=== PATIENT | male | born 1995 | race Caucasian/White ===

== ENCOUNTER 2025-07-31 15:09 | Emergency (ER) | payer OTHER, SELFPAY ==
--- NOTE | 2025-07-31 15:17 | XR_ITS ---
FINAL REPORT CLINICAL HISTORY: Laceration over 1st MCP COMPARISON: None FINDINGS: AP, oblique, and lateral views of the left hand were obtained. There is no prior exam for comparison. There is no acute fracture of the left hand. No radiopaque foreign body is identified. The joint spaces are preserved. The soft tissues are normal. IMPRESSION: No acute osseous abnormality of the left hand. Reviewed, Interpreted and Dictated by Oumou Garcia MD Transcribed by Angelia Dubon Authenticated and [facility]
[2025-07-31 15:19] VITALS: BP 144/95; PULSE 67; RESP 18; TEMP 37; O2SAT 100; BMI 24.4
--- NOTE | 2025-07-31 15:20 | PC.NURSE ---
Pt has limited movement of the thumb. Sensation intact, strong pulse, brisk cap refill.
[2025-07-31 15:26] VITALS: BP 144/95; PULSE 71; O2SAT 100
--- NOTE | 2025-07-31 15:31 | HMH.EDGENADL ---
Discharge Plan Referrals Follow up/Referrals: Sarahi Garcia PA [Primary Care Provider, Medical] - See instructions Clinical Impressions Clinical Impression: Laceration of left thumb Stand Alone Forms Stand Alone Forms: Transfer Record - ED Instructions Patient Instructions: DI for Laceration Repair Print Language Print Language: [place] Discharge ED Provider: Edmar Doe General Adult HPI General Chief complaint: Wound/Laceration Stated complaint: AO 10-15 cut left hand at work Time Seen by Provider: 07/31/25 15:12 Mode of Arrival: Ambulatory Source of Information: Patient Description of Symptoms (Recalled from ER Triage Doc. by RN): Reports cutting his left thumb at work. History of Present Illness HPI narrative: This is a 30-year-old male patient, with no past medical history no daily medications, who is presenting to the emergency department today for evaluation of a laceration over his left hand. Patient states that he was at work and was using a razor blade to cut something and the blade slipped and cut the dorsal aspect of his hand over the thumb. He has had a loss of range of motion of the thumb specifically in abduction. He has had no sensory deficits. Related Data Allergies Allergy/AdvReac Type Severity Reaction Status Date / Time No Known Allergies Allergy Verified 07/31/25 15:23 [facility] Disclaimer: The information contained in this section may have been updated after the patient was seen, as this information can be updated by other users. Social History Smoking Status: Current every day smoker alcohol intake: former current occupational status: employed and unemployed Travel in the last 8 weeks?: None ROS Obtained: Yes Systems reviewed as appropriate & no additional complaints except as documented Physical Exam General General appearance: other (See MDM) Respiratory Respiratory exam: Present other (See MDM) Cardiovascular Cardiovascular exam: Present other (See MDM) Neurological Exam Neurological exam: Present other (See MDM) Medical Decision Making Medical Records Medical records reviewed: Yes I reviewed the patient's medical records. Screening: Per USPSTF and CDC recommendations, given the prevalence of disease in our region, it is our hospital?s policy to screen for HIV and viral Hepatitis for all patients aged 18 and over and those with ongoing risk factors. Aidan Inquiry Pt receiving controlled substance: No Aidan was queried for this patient: No Vital Signs: 07/31/25 15:19 Temperature 98.6 F Temperature Source Oral Pulse Rate [Radial] 67 Respiratory Rate 18 Blood Pressure [Right Arm] 144/95 H Blood Pressure Mean [Right Arm] 111 Blood Pressure Source [Right Arm] Automatic Cuff Blood Pressure Position [Right Arm] Sitting 02 Sat by Pulse Oximetry 100 Oxygen Delivery Method Room Air Orders (Tests/Meds): ED MEDICATIONS Generic Name Dose Route Start Last Admin Trade Name Freq PRN Reason Stop Dose Admin Cefazolin Sodium 2 gm/ Sodium 100 mls @ 200 mls/hr 07/31/25 16:00 07/31/25 16:16 Chloride IV 07/31/25 16:29 Infused ONCE ONE Infusion Oxycodone HCl 5 mg 07/31/25 16:18 Oxycodone 5mg Immediate Release Tablet PO 07/31/25 16:19 ONCE ONE Discontinued Medications Generic Name Dose Route Start Last Admin Trade Name Freq PRN Reason Stop Dose Admin Cefazolin Sodium 2 gm 07/31/25 15:27 07/31/25 15:41 Cefazolin 1gm Vial IM 07/31/25 15:28 Not Given ONCE ONE Tetanus/Reduced Diphtheria/Acell Pertussis 0.5 ml 07/31/25 16:00 07/31/25 15:51 Tet/Diphth/Pert-Adult 0.5ml Syringe IM 07/31/25 16:01 0.5 ml .ONCE ONE Administration ORDERS Category Date Time Status Hand XR left minimum 3 views [XR hand LT min 3V] Stat Exams 07/31/25 15:17 Taken Drug Screen,Urine Stat Lab 07/31/25 15:33 Ordered Medical Decision Narrative: In summary this is a 30-year-old male patient who is presenting to the emergency department today for evaluation of a laceration over the dorsal aspect of his left proximal thumb. Patient states that he was using a razor blade at work and the blade slipped and lacerated the thumb. Wound was hemostatic on arrival. The patient does not have any comorbidities that complicate his medical management or care. On initial evaluation of the patient they were resting comfortably in no acute distress and nontoxic in appearance. They are hemodynamically stable, saturating well room air, and are neurologically intact. On physical examination of the left upper extremity there is an approximate 2-1/2 cm laceration over the dorsal aspect of the thumb along the MCP joint. Upon full inspection of this wound you can see the rounded surface of the proximal phalanx where it meets the joint line. This is very suspicious for traumatic arthrotomy of the joint. The patient has limited range of motion with abduction of the thumb which could indicate underlying tendinous involvement. Wound is currently hemostatic. Differential diagnosis includes traumatic arthrotomy, retained foreign body, bony avulsion, tendinous injury, among others. Workup is initiated with x-rays of the left hand. We have also treated the patient with 2 g of Ancef, Tdap vaccination, and 5 mg of oxycodone for pain. X-rays were personally interpreted by me and demonstrate no evidence of retained foreign body or fracture. Given my suspicion for potential traumatic arthrotomy I did speak to our orthopedist on-call and he is recommended that we transfer for higher level of care for evaluation by an orthopedic hand surgeon. Therefore I had an interactive discussion with Dr. Byers at the [facility] transfer center and they graciously agreed to accept the patient for transfer to their facility for higher level of care. Patient request to be transferred by privately owned vehicle and I do feel this is appropriate given that he is hemodynamically stable and hemostatic at this time. Patient left the emergency department to transfer to via POV. Critical Care Critical Care Time Critical Care Time: No
--- NOTE | 2025-07-31 15:32 | PC.NURSE ---
Pt ambulatory to bathroom to provide urine sample
--- OUTSIDE RECORDS SUMMARY | 2025-07-31 15:32 | XMS_ITS | Clinical Summary ---
Author Organization [facility] Address [address] [place], [place] [id number] Phone [email or web address] Care Team Providers Care Qa Tester Name Role Phone Unavailable Primary Care Provider Unavailabl e Allergies No known active allergies Medications No known medications Active Problems No known active problems Social History Tobacco Use Types Packs/Day Years Used Date Smoking Tobacco: Never Assessed Stress Answer Date Recorded Stress in your Life Not on file 08/23/2024 Dealing with Stress 3 08/23/2024 Sex and Gender Information Value Date Recorded Sex Assigned at Not on file Legal Sex Male 6:33 AM [employer]PUT[employer] Gender Identity Not on file Sexual Orientation Not on file Last Filed Vital Signs Vital Sign Reading Time Taken Comments Blood Pressure 128/85 09/02/2023 9:40 AM EST Pulse 74 09/02/2023 9:40 AM EST Temperature 36.8 C (98.3 F) 09/02/2023 9:40 AM EST Respiratory Rate - - Oxygen Saturation 97% 09/02/2023 9:40 AM EST Inhaled Oxygen Concentration - - Weight 76.7 kg (169 lb 3.2 oz) 09/02/2023 9:40 A M EST Height 179.1 cm (5' 10.5 ) 09/02/2023 9:40 AM ES T Body Mass Index 23.93 09/02/2023 9:40 AM EST Plan of Treatment Health Maintenance Due Date Last Done Comments Dental Cleaning/Exam 1995 HIV Screening 1995 Hepatitis C Screening 1995 Polio Immunization (3 of 3 - 4-dose series) 10/29/1999 04/28/1999, 04/27/1996 HPV Immunization (1 - Male 3-dose series) 2010 Hep B Infection Screening - Triple Screen 2013 Hepatitis B Immunization (1 of 3 - 19+ 3-dose series) 2014 Tetanus Diphtheria and Pertussis Immunization (4 - Td or Tdap) 05/22/2017 05/22/2007, 04/28/1999, 08/29/1996 Annual Preventive Exam 09/02/2024 09/02/2023 Covid-19 Immunization ( season) 2025 Influenza Immunization (#1) 2025 HIB Immunization Completed 08/29/1996 Varicella Immunization Aged Out 08/29/1996 No lo nger eligible based on patient's age to complete this topic Hepatitis A Immunization Aged Out 09/04/2018 No longer eligible based on patient's age to complete this topic Pneumococcal Immunization Aged Out No longer eligible based on patient's age to complete this topic
--- NOTE | 2025-07-31 15:33 | PC.WOUNDNOTE ---
Spoke with HR at [employer]. States they do require a drug screen.
--- OUTSIDE RECORDS SUMMARY | 2025-07-31 15:33 | XMS_ITS | Data Portability ---
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 Plan of Treatment Reminders Order Date Submit Date Provider Last Modified By Organization Details Last Modified Time Details Appointments Establish ed Visit 15 min 2025 04:00P M Sarahi Quiñones PA-C Not available Not available Not available Lab CBC w/ auto diff 2024 025 [facility], [address] [place] [address], [id number], 07/30/2025 13:11:38 magnesium , serum or plasma 2024 025 [facility], [address] [place] [address], [id number], 07/30/2025 13:11:39 TSH + free T4, serum 2024 025 [facility], [address] [place] [address], [id number], 07/30/2025 13:11:37 TSH + free T4, serum 2024 025 [facility], [address] [place] [address], 07[address], 03/15/2025 19:09:28 thyropero xidase Ab, serum 2024 025 [facility], [address] [place] [address], [id number], 03/15/2025 19:09:29 T3, free, serum or plasma 2024 025 [facility], [address] [place] [address], [id number], 03/15/2025 19:09:31 CMP, serum or plasma 2024 025 [facility], [address] [place] [address], 18[address], 02/13/2025 13:18:54 CBC w/ auto diff 2024 025 [facility], [address] [place] [address], [address], 02/13/2025 13:18:53 TSH + free T4, serum 2024 025 [facility], [address] [place] [address], [address], 02/13/2025 13:18:53 magnesium , serum or plasma 2024 025 [facility], [address] [place] [address], 09686, 02/13/2025 13:18:58 HbA1c (hemoglob in A1c), blood 2024 025 [facility], [address] [place] [address], [id number], 02/13/2025 13:18:56 cobalamin and folate panel, serum 2024 025 [facility], [address] [place] [address], 88[address], 02/13/2025 13:18:56 vitamin D, 25-hydrox y, total, serum 2024 025 [facility], [address] [place] [address], 9[address], 02/13/2025 13:18:57 lipid panel, serum 2024 025 [facility], [address] [place] [address], 45[address], 02/13/2025 13:18:55 CMP, serum or plasma 2024 025 [facility], [address] [place] [address], 98135, 01/21/2025 16:13:25 CBC w/ auto diff 2024 025 [place] [address] [facility], [address] [place] [address], [id number], 01/24/2025 07:47:23 TSH + free T4, serum 2024 025 [facility], [address] [place] [address], [id number], 01/21/2025 16:13:24 magnesium , serum or plasma 2024 025 [facility], [address] [place] [address], [id number], 01/21/2025 16:13:29 HbA1c (hemoglob in A1c), blood [address], [address] [place] [address], 829[address], 01/24/2025 07:47:23 cobalamin and folate panel, serum 2024 025 [facility], [address] [place] [address], 18647, 01/21/2025 16:13:27 vitamin D, 25-hydrox y, total, serum 2024 025 [facility], [address] [place] [address], 02[address], 01/21/2025 16:13:28 lipid panel, serum 2024 025 [facility], [address] [place] [address], 827[address], 01/21/2025 16:13:26 Referral cardiolog ist referral 2024 025 MATT Burgess MD, [address], [place] [address], [place], [address], 07/29/2025 11:40:28 cardiolog ist referral - Sc ansley per patient 2024 [email or web address], [address], [facility], [place], [address], 02/14/2025 07:11:42 Procedures None recorded. Surgeries None recorded. Imaging electroca rdiogram [address], [address] [place] [address], [phone], 07/29/2025 10:23:19 US, thyroid [email or web address] - Centralized Scheduling, [address] [facility] , [place], [address], 03/28/2025 06:54:50 electroca rdiogram [address], [address] [place] [address], [phone], 01/17/2025 14:19:21 Medication Orders citalopra m 20 mg tablet 2024 025 [employer], [address], [place], [id number], 07/29/2025 09:47:43 Patient TargetsNo targets recorded. Patient Instructions Encounter Date Encounter Id Patient Instructions Last Modified By Organization Details Last Modified Time 01/17/2025 [id number] Plan: 1. EKG obtained today which showed normal sinus rhythm no ST segment elevation or depression noted with heart rate of 71 beats per minute. 2. Labs drawn today for evaluation. 3. Based on patients symptoms recommend cardiology referral for evaluation. 4. Follow-up in 3 weeks for recheck. Patient was counseled to return to the clinic sooner if needed. [email or web address] Not available 01/17/2025 13:50:01 02/12/2025 [id number] smoking and tobacco use cessation counseling* [email or web address] Not available 02/19/2025 07:09:56 Plan: 1. Labs drawn today for evaluation. 2. Advised patient he needs to be on Celexa for a full 4 weeks before going to see if medication dosing needs increased. 3. Counseled patient on smoking cessation patient is going to work on cutting back on his vaping. Patient was counseled for approximately 3 minutes. 4. Will follow up with him in 4 weeks. Labs redrawn today. Patient counseled to return to the clinic sooner if needed. [email or web address] Not available 02/12/2025 09:10:44 03/14/2025 [id number] 1. TSH was decreased from last visit, T4 was normal. Repeated thyroid lab work today. Ordered US for enlarged thyroid. 2. Will increase citalopram to 20 mg 3. He had an elevated LDL. Counseled patient on healthy diet. 4. Vitamin D was slightly below normal. Recommended a multivitamin Patient will return in 3 weeks for test results. Patient will return to clinic sooner if needed. LAWRENCE Booker I agree with the above Note completed by Ktoa BRAVO. will follow-up with patient 3 weeks sooner if needed. [email or web address] Not available 03/14/2025 14:29:37 05/09/2025 [id number] Plan: 1. Reviewe d blood work with him which came back normal on the repeat lab draw. 2. Reviewed thyroid ultrasound which showed unremarkable thyroid ultrasound with no nodules present. 3. Send his symptoms have all resolved with his job change and all his testing has been negative recommend follow-up on thyroid in 6 months. Patient is agreeable. He will make a sooner appointment if any new symptoms should arise otherwise will see him in 6 months sooner if needed. [email or web address] Not available 05/10/2025 08:13:41 07/29/2025 [id number] Plan: 1. EKG obtained today which showed normal sinus rhythm no ST segment elevation or depression with ventricular rate of 70 beats per minute. 2. Referral to Cardiology started today. 3. Labs drawn today for evaluation. 4. Will follow-up with him in October as scheduled. Patient was advised to return to the clinic sooner if needed. 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 Testi ng could not be compl eted due to a speci men ident ifica tion probl em. Patie nt name or ident ifica tion on speci men does not match name or ident ifica tion on requi sitio n. CONTA CTED SMITA [employer] OPERATOR ON Not Available [facility] ([facility]) [address] [place], [address], 01/21/2025 16:13:24 01/18/20 25 01/21/2025 TSH+F REE T4 T4,free(dire ct) TNP Test not perfo rmed Not Available [facility] ([facility]) [address] [place], [address], 01/21/2025 16:13:24 01/18/20 25 01/21/2025 COMP. METAB OLIC PANEL (14) glucose COMMEN T mg/dL Test not perfo rmed. Testi ng could not be compl eted due to a speci men ident ifica tion probl em. Patie nt name or ident ifica tion on speci men does not match name or ident ifica tion on requi sitio n. CONTA CTED [employer]ITA [employer] OPERATOR ON Not Available [facility] ([facility]) [address] [place], [address], 01/21/2025 16:13:25 01/18/20 25 01/21/2025 COMP. METAB OLIC PANEL (14) BUN TNP Test not perfo rmed Not Available [facility] ([facility]) [address] [facility], [place], [address], 01/21/2025 16:13:25 01/18/20 25 01/21/2025 COMP. METAB OLIC PANEL (14) creatinine TNP Test not perfo rmed Not Available [facility] ([facility]) [address] [facility], [place], [address], 01/21/2025 16:13:25 01/18/20 25 01/21/2025 COMP. METAB OLIC PANEL (14) eGFR MANGLE OPERATOR GARMENTS Not Available [facility] ([facility]) [address] [place], [address], 01/21/2025 16:13:25 01/18/20 25 01/21/2025 COMP. METAB OLIC PANEL (14) BUN/creatini ne ratio MANGLE OPERATOR GARMENTS Not Available [facility] ([facility]) [address] [place], [address], 01/21/2025 16:13:25 01/18/20 25 01/21/2025 COMP. METAB OLIC PANEL (14) sodium TNP Test not perfo rmed Not Available [facility] ([facility]) [address] [place], [address], 01/21/2025 16:13:25 01/18/20 25 01/21/2025 COMP. METAB OLIC PANEL (14) potassium TNP Test not perfo rmed Not Available [facility] ([facility]) [address] [place], [address], 01/21/2025 16:13:25 01/18/20 25 01/21/2025 COMP. METAB OLIC PANEL (14) chloride TNP Test not perfo rmed Not Available [facility] ([facility]) [address], [place], [address], 01/21/2025 16:13:25 01/18/20 25 01/21/2025 COMP. METAB OLIC PANEL (14) carbon dioxide, total TNP Test not perfo rmed Not Available [facility] ([facility]) [address], [place], [address], 01/21/2025 16:13:25 01/18/20 25 01/21/2025 COMP. METAB OLIC PANEL (14) calcium TNP Test not perfo rmed Not Available [facility] ([facility]) [address], [place], [address], 01/21/2025 16:13:25 01/18/20 25 01/21/2025 COMP. METAB OLIC PANEL (14) protein, total TNP Test not perfo rmed Not Available [facility] ([facility]) [address], [place], [address], 01/21/2025 16:13:25 01/18/20 25 01/21/2025 COMP. METAB OLIC PANEL (14) albumin TNP Test not perfo rmed Not Available [facility] ([facility]) [address] [facility], [place], [address], 01/21/2025 16:13:25 01/18/20 25 01/21/2025 COMP. METAB OLIC PANEL (14) globulin, total MANGLE OPERATOR GARMENTS Not Available [facility] ([facility]) [address] [facility], [place], [address], 01/21/2025 16:13:25 01/18/20 25 01/21/2025 COMP. METAB OLIC PANEL (14) A/G ratio MANGLE OPERATOR GARMENTS Not Available [facility] ([facility]) [address], [place], [address], 01/21/2025 16:13:25 01/18/20 25 01/21/2025 COMP. METAB OLIC PANEL (14) bilirubin, total TNP Test not perfo rmed Not Available [facility] ([facility]) [address] [place], [address], 01/21/2025 16:13:25 01/18/20 25 01/21/2025 COMP. METAB OLIC PANEL (14) alkaline phosphatase TNP Test not perfo rmed Not Available [facility] ([facility]) [address] [place], [address], 01/21/2025 16:13:25 01/18/20 25 01/21/2025 COMP. METAB OLIC PANEL (14) AST (SGOT) TNP Test not perfo rmed Not Available [facility] ([facility]) [address] [place], [address], 01/21/2025 16:13:25 01/18/20 25 01/21/2025 COMP. METAB OLIC PANEL (14) ALT (SGPT) TNP Test not perfo rmed Not Available [facility] ([facility]) [address] [place], [address], 01/21/2025 16:13:25 01/18/20 25 01/21/2025 LIPID PANEL cholesterol, total COMMEN T mg/dL Test not perfo rmed. Testi ng could not be compl eted due to a speci men ident ifica tion probl em. Patie nt name or ident ifica tion on speci men does not match name or ident ifica tion on requi sitio n. CONTA CTED SMITA [employer] OPERATOR ON 5 Not Available [facility] ([facility]) [address] [place], [address], 01/21/2025 16:13:26 01/18/20 25 01/21/2025 LIPID PANEL triglyceride s TNP Test not perfo rmed Not Available [facility] ([facility]) [address] [facility], [place], [address], 01/21/2025 16:13:26 01/18/20 25 01/21/2025 LIPID PANEL HDL cholesterol TNP Test not perfo rmed Not Available [facility] ([facility]) [address] [facility], [place], [address], 01/21/2025 16:13:26 01/18/20 25 01/21/2025 LIPID PANEL VLDL cholesterol rahel COMMEN T mg/dL Unabl e to calcu late resul t since non-n umeri c resul t obtai trever for compo nent test. Not Available [facility] ([facility]) [address] [facility], [place], [address], 01/21/2025 16:13:26 01/18/20 25 01/21/2025 LIPID PANEL LDL chol calc ([facility]) MANGLE OPERATOR GARMENTS Not Available [facility]) [address] [facility], [place], [address], 01/21/2025 16:13:26 01/18/20 25 01/21/2025 LIPID PANEL LDL calc comment: MANGLE OPERATOR GARMENTS Not Available [facility]) [address] [facility], [place], [address], 01/21/2025 16:13:26 01/18/20 25 01/21/2025 CARDI OVASC ULAR REPOR T interpretati on Not applic able A Litho link CDS inter preti ve repor t has not been gener ated since order ed tests are not curre ntly relev ant to the progr am. Not Available [facility] ([facility]) [address] [facility], [place], [address], 01/21/2025 16:13:27 01/18/20 25 01/21/2025 CARDI OVASC ULAR REPOR T pdf Not applic able Not Available [facility] ([facility]) [address] [facility], [place], [address], 01/21/2025 16:13:27 01/18/20 25 01/21/2025 VITAM IN B12 AND FOLAT E vitamin B12 COMMEN T pg/mL Test not perfo rmed. Testi ng could not be compl eted due to a speci men ident ifica tion probl em. Patie nt name or ident ifica tion on speci men does not match name or ident ifica tion on requi sitio n. CONTA CTED SMITA [employer] OPERATOR ON 5 Not Available [facility] ([facility]) [address] [place], [address], 01/21/2025 16:13:27 01/18/20 25 01/21/2025 VITAM IN B12 AND FOLAT E folate (folic acid), serum TNP Test not perfo rmed Not Available [facility] ([facility]) [address] [place], [address], 01/21/2025 16:13:27 01/18/20 25 01/21/2025 VITAM IN D, 25-HY DROXY vitamin D, 25-hydroxy COMMEN T NG/mL Test not perfo rmed. Testi ng could not be compl eted due to a speci men ident ifica tion probl em. Patie nt name or ident ifica tion on speci men does not match name or ident ifica tion on requi sitio n. CONTA CTED SMITA [employer] D[employer]ING [employer]ANT OPERATOR ON 5 Vitam in D defic iency has been defin ed by the Insti tute of Medic ine and an Endoc rine Socie ty pract ice guide line as a level of serum 25-OH vitam in D less than 20 ng/mL (1,2) . The Endoc rine Socie ty went on to [facility] er defin e vitam in D insuf ficie ncy as a level betwe en 21 and 29 ng/mL (2). 1. IOM (Inst itute of Medic ine). 2009. Dieta ry refer ence caryn es for calci um and D. Barber holloway [place]: [facility] . 2. Justine k [place], Binkl ey [place], Bisch off-F errar i TELLEZ, et al. Evalu ation , treat ment, and preve ntion of vitam in D defic iency : an Endoc rine Socie ty clini rahel pract ice guide line. JCEM. 2010; 96(7) :1911 -30. Not Available [facility] ([facility]) [address] [facility], [place], [address], 01/21/2025 16:13:28 01/18/20 25 01/21/2025 MAGNE SIUM magnesium COMMEN T mg/dL Test not perfo rmed. Testi ng could not be compl eted due to a speci men ident ifica tion probl em. Patie nt name or ident ifica tion on speci men does not match name or ident ifica tion on requi sitio n. CONTA CTED SMITA [employer] OPERATOR ON 5 Not Available [facility] ([facility]) [address] [facility], [place], [address], 01/21/2025 16:13:29 01/18/20 25 01/21/2025 SPECI MEN STATU S REPOR T specimen status report COMMEN T Test not perfo rmed. Testi ng could not be compl eted due to a speci men ident ifica tion probl em. Patie nt name or ident ifica tion on speci men does not match name or ident ifica tion on requi sitio n. TEST: 52712 6 TSH+F ree T4 48269 9 CBC With Diffe renti al/Pl atele t 75357 0 Comp. Metab olic Panel (51) 43482 6 Lipid Panel 68769 0 Vitam in B12 and Folat e 28273 3 Hemog lobin A1c 49548 0 Vitam in D, 25-Hy droxy 77029 7 Magne sium CONTA CTED SMITA [employer] OPERATOR ON 5 Not Available [facility] ([facility]) [address] [place], [address], 01/21/2025 16:13:30 02/13/20 25 02/13/2025 TSH+F REE T4 TSH 0.396 uIU/m L 0.450- 4.500 below low normal Not Available [facility] ([facility]) [address] [place], [address], 02/13/2025 13:18:53 02/13/20 25 02/13/2025 TSH+F REE T4 T4,free(dire ct) 1.24 NG/dL 0.82-1 .77 normal Not Available [facility] ([facility]) [address] [place], [address], 02/13/2025 13:18:53 02/13/20 25 02/13/2025 CBC WITH DIFFE RENTI AL/PL ATELE T WBC 4.8 x10e3 /uL 3.4-10 .8 normal Not Available [facility] ([facility]) [address] [place], [address], 02/13/2025 13:18:53 02/13/20 25 02/13/2025 CBC WITH DIFFE RENTI AL/PL ATELE T RBC 5.06 x10e6 /uL 4.14-5 .80 normal Not Available [facility] ([facility]) [address] [place], [address], 02/13/2025 13:18:53 02/13/20 25 02/13/2025 CBC WITH DIFFE RENTI AL/PL ATELE T hemoglobin 14.9 g/dL 13.0-1 7.7 normal Not Available [facility] ([facility]) [address] [place], [address], 02/13/2025 13:18:53 02/13/20 25 02/13/2025 CBC WITH DIFFE RENTI AL/PL ATELE T hematocrit 45.3 % 37.5-5 1.0 normal Not Available [facility] ([facility]) [address] [facility], [place], [address], 02/13/2025 13:18:53 02/13/20 25 02/13/2025 CBC WITH DIFFE RENTI AL/PL ATELE T MCV 90 fL 79-97 normal Not Available [facility] ([facility]) [address] [facility], [place], [address], 02/13/2025 13:18:53 02/13/20 25 02/13/2025 CBC WITH DIFFE RENTI AL/PL ATELE T MCH 29.4 pg 26.6-3 3.0 normal Not Available [facility] ([facility]) [address] [place], [address], 02/13/2025 13:18:53 02/13/20 25 02/13/2025 CBC WITH DIFFE RENTI AL/PL ATELE T MCHC 32.9 g/dL 31.5-3 5.7 normal Not Available [facility] ([facility]) [address] [facility], [place], [address], 02/13/2025 13:18:53 02/13/20 25 02/13/2025 CBC WITH DIFFE RENTI AL/PL ATELE T RDW 12.1 % 11.6-1 5.4 Not Available [facility] ([facility]) [address] [place], [address], 02/13/2025 13:18:53 02/13/20 25 02/13/2025 CBC WITH DIFFE RENTI AL/PL ATELE T platelets 294 x10e3 /uL 150-45 0 normal Not Available [facility] ([facility]) [address] [place], [address], 02/13/2025 13:18:53 02/13/20 25 02/13/2025 CBC WITH DIFFE RENTI AL/PL ATELE T neutrophils 54 % not estab. normal Not Available [facility] ([facility]) [address] [place], [address], 02/13/2025 13:18:53 02/13/20 25 02/13/2025 CBC WITH DIFFE RENTI AL/PL ATELE T lymphs 29 % not estab. normal Not Available [facility] ([facility]) [address] [facility], [place], [address], 02/13/2025 13:18:53 02/13/20 25 02/13/2025 CBC WITH DIFFE RENTI AL/PL ATELE T monocytes 13 % not estab. normal Not Available [facility] ([facility]) [address] [facility], [place], [address], 02/13/2025 13:18:53 02/13/20 25 02/13/2025 CBC WITH DIFFE RENTI AL/PL ATELE T eos 3 % not estab. normal Not Available [facility] ([facility]) [address] [facility], [place], [address], 02/13/2025 13:18:53 02/13/20 25 02/13/2025 CBC WITH DIFFE RENTI AL/PL ATELE T basos 1 % not estab. normal Not Available [facility] ([facility]) [address] [facility], [place], [address], 02/13/2025 13:18:53 02/13/20 25 02/13/2025 CBC WITH DIFFE RENTI AL/PL ATELE T immature cells MANGLE OPERATOR GARMENTS Not Available [facility] ([facility]) [address] [facility], [place], [address], 02/13/2025 13:18:53 02/13/20 25 02/13/2025 CBC WITH DIFFE RENTI AL/PL ATELE T neutrophils (absolute) 2.6 x10e3 /uL 1.4-7. 0 normal Not Available [facility] ([facility]) [address] [facility], [place], [address], 02/13/2025 13:18:53 02/13/20 25 02/13/2025 CBC WITH DIFFE RENTI AL/PL ATELE T lymphs (absolute) 1.4 x10e3 /uL 0.7-3. 1 normal Not Available [facility] ([facility]) [address] [facility], [place], [address], 02/13/2025 13:18:53 02/13/20 25 02/13/2025 CBC WITH DIFFE RENTI AL/PL ATELE T monocytes(ab solute) 0.6 x10e3 /uL 0.1-0. 9 normal Not Available [facility] ([facility]) [address] [place], [address], 02/13/2025 13:18:53 02/13/20 25 02/13/2025 CBC WITH DIFFE RENTI AL/PL ATELE T eos (absolute) 0.1 x10e3 /uL 0.0-0. 4 normal Not Available [facility] ([facility]) [address] [facility], [place], [address], 02/13/2025 13:18:53 02/13/20 25 02/13/2025 CBC WITH DIFFE RENTI AL/PL ATELE T baso (absolute) 0.0 x10e3 /uL 0.0-0. 2 normal Not Available [facility] ([facility]) [address] [place], [address], 02/13/2025 13:18:53 02/13/20 25 02/13/2025 CBC WITH DIFFE RENTI AL/PL ATELE T immature granulocytes 0 % not estab. Not Available [facility] ([facility]) [address] [place], [address], 02/13/2025 13:18:53 02/13/20 25 02/13/2025 CBC WITH DIFFE RENTI AL/PL ATELE T immature grans (abs) 0.0 x10e3 /uL 0.0-0. 1 Not Available [facility] ([facility]) [address] [facility], [place], [address], 02/13/2025 13:18:53 02/13/20 25 02/13/2025 CBC WITH DIFFE RENTI AL/PL ATELE T NRBC MANGLE OPERATOR GARMENTS Not Available [facility] ([facility]) [address], [place], [address], 02/13/2025 13:18:53 02/13/20 25 02/13/2025 CBC WITH DIFFE RENTI AL/PL ATELE T hematology comments: MANGLE OPERATOR GARMENTS Not Available [facility] ([facility]) [address], [place], [address], 02/13/2025 13:18:53 02/13/20 25 02/13/2025 COMP. METAB OLIC PANEL (14) glucose 90 mg/dL 70-99 normal Not Available [facility] ([facility]) [address] [facility], [place], [address], 02/13/2025 13:18:54 02/13/20 25 02/13/2025 COMP. METAB OLIC PANEL (14) BUN 11 mg/dL 6-20 normal Not Available [facility] ([facility]) [address] [facility], [place], [address], 02/13/2025 13:18:54 02/13/20 25 02/13/2025 COMP. METAB OLIC PANEL (14) creatinine 0.76 mg/dL 0.76-1 .27 normal Not Available [facility] ([facility]) [address] [facility], [place], [address], 02/13/2025 13:18:54 02/13/20 25 02/13/2025 COMP. METAB OLIC PANEL (14) eGFR 125 mL/mi n/1.7 3 >59 normal Not Available [facility] ([facility]) [address] [facility], [place], [address], 02/13/2025 13:18:54 02/13/20 25 02/13/2025 COMP. METAB OLIC PANEL (14) BUN/creatini ne ratio 14 9-20 normal Not Available [facility] ([facility]) [address] [place], [address], 02/13/2025 13:18:54 02/13/20 25 02/13/2025 COMP. METAB OLIC PANEL (14) sodium 141 mmol/ L 134-14 4 normal Not Available [facility] ([facility]) [address] [facility], [place], [address], 02/13/2025 13:18:54 02/13/20 25 02/13/2025 COMP. METAB OLIC PANEL (14) potassium 4.6 mmol/ L 3.5-5. 2 normal Not Available [facility] ([facility]) [address] [facility], [place], [address], 02/13/2025 13:18:54 02/13/20 25 02/13/2025 COMP. METAB OLIC PANEL (14) chloride 100 mmol/ L 96-106 normal Not Available [facility] ([facility]) [address] [place], [address], 02/13/2025 13:18:54 02/13/20 25 02/13/2025 COMP. METAB OLIC PANEL (14) carbon dioxide, total 23 mmol/ L 20-29 normal Not Available [facility] ([facility]) [address] [place], [address], 02/13/2025 13:18:54 02/13/20 25 02/13/2025 COMP. METAB OLIC PANEL (14) calcium 9.6 mg/dL 8.7-10 .2 normal Not Available [facility] ([facility]) [address] [place], [address], 02/13/2025 13:18:54 02/13/20 25 02/13/2025 COMP. METAB OLIC PANEL (14) protein, total 7.5 g/dL 6.0-8. 5 normal Not Available [facility] ([facility]) [address] [facility] [facility], [place], [address], 02/13/2025 13:18:54 02/13/20 25 02/13/2025 COMP. METAB OLIC PANEL (14) albumin 4.8 g/dL 4.3-5. 2 normal Not Available [facility] ([facility]) [address] [facility], [place], [address], 02/13/2025 13:18:54 02/13/20 25 02/13/2025 COMP. METAB OLIC PANEL (14) globulin, total 2.7 g/dL 1.5-4. 5 Not Available [facility] ([facility]) [address] [facility], [place], [address], 02/13/2025 13:18:54 02/13/20 25 02/13/2025 COMP. METAB OLIC PANEL (14) bilirubin, total 0.7 mg/dL 0.0-1. 2 normal Not Available [facility] ([facility]) [address] [facility] [place], [address], 02/13/2025 13:18:54 02/13/20 25 02/13/2025 COMP. METAB OLIC PANEL (14) alkaline phosphatase 93 IU/L 44-121 normal Not Available [facility] ([facility]) [address] [facility], [place], [address], 02/13/2025 13:18:54 02/13/20 25 02/13/2025 COMP. METAB OLIC PANEL (14) AST (SGOT) 18 IU/L 0-40 normal Not Available [facility] ([facility]) [address] [facility], [place], [address], 02/13/2025 13:18:54 02/13/20 25 02/13/2025 COMP. METAB OLIC PANEL (14) ALT (SGPT) 17 IU/L 0-44 normal Not Available [facility] ([facility]) [address] [place], [address], 02/13/2025 13:18:54 02/13/20 25 02/13/2025 LIPID PANEL cholesterol, total 180 mg/dL 100-19 9 normal Not Available [facility] ([facility]) [address] [place], [address], 02/13/2025 13:18:55 02/13/20 25 02/13/2025 LIPID PANEL triglyceride s 126 mg/dL 0-149 normal Not Available [facility] ([facility]) [address] [place], [address], 02/13/2025 13:18:55 02/13/20 25 02/13/2025 LIPID PANEL HDL cholesterol 35 mg/dL >39 below low normal Not Available [facility] ([facility]) [address] [place], [address], 02/13/2025 13:18:55 02/13/20 25 02/13/2025 LIPID PANEL VLDL cholesterol rahel 23 mg/dL 5-40 Not Available [facility] ([facility]) [address] [place], [address], 02/13/2025 13:18:55 02/13/20 25 02/13/2025 LIPID PANEL LDL chol calc ([facility]) 122 mg/dL 0-99 above high normal Not Available [facility] ([facility]) [address] [place], [address], 02/13/2025 13:18:55 02/13/20 25 02/13/2025 LIPID PANEL LDL calc comment: 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 Not Available [facility] ([facility]) [address] [facility], [place], [address], 02/13/2025 13:18:56 02/13/20 25 02/13/2025 HEMOG LOBIN A1C hemoglobin A1C 5.1 % 4.8-5. 6 normal Predi abete s: 5.7 - 6.4 Diabe tej: >6.4 Glyce roberto contr ol for adult s with diabe tej: <7.0 Not Available [facility] ([facility]) [address] [facility], [place], [address], 02/13/2025 13:18:56 02/13/20 25 02/13/2025 VITAM IN D, 25-HY DROXY vitamin D, 25-hydroxy 29.3 NG/mL 30.0-1 00.0 below low normal Vitam in D defic iency has been defin ed by the Insti tute of Medic ine and an Endoc rine Socie ty pract ice guide line as a level of serum 25-OH vitam in D less than 20 ng/mL (1,2) . The Endoc rine Socie ty [facility] e vitam in D insuf ficie ncy as a level betwe en 21 and 29 ng/mL (2). 1. IOM (Inst itute of Medic ine). 2010. Dieta ry refer ence intak es for calci um and D. Barber holloway [place]: The Natio [facility]ade [facility] Press . 2. Justine jacobs MF, Shana aguilera [place], Corrine off-F errar i TELLEZ, et al. Evalu ation , treat ment, and preve ntion of vitam in D defic iency : an Endoc rine Socie ty clini rahel pract ice guide line. JCEM. 2010; 96(7) :1911 -30. Not Available [facility] ([facility]) [address] [facility], [place], [address], 02/13/2025 13:18:57 02/13/20 25 02/13/2025 MAGNE SIUM magnesium 2.2 mg/dL 1.6-2. 3 normal Not Available [facility] ([facility]) [address] [facility], [place], [address], 02/13/2025 13:18:58 02/13/20 25 02/13/2025 CARDI OVASC ULAR REPOR T interpretati on Note Suppl ement al repor t is avail able. Not Available [facility] & [address], [address], 02/13/2025 13:18:58 02/13/20 25 02/13/2025 CARDI OVASC ULAR REPOR T pdf . Not Available [facility] & [address], [address], 02/13/2025 13:18:58 03/14/20 25 03/15/2025 TSH+F REE T4 TSH 0.771 uIU/m L 0.450- 4.500 normal Not Available [facility] ([facility]) [address] [facility], [place], [address], 03/15/2025 19:09:28 03/14/20 25 03/15/2025 TSH+F REE T4 T4,free(dire ct) 1.25 NG/dL 0.82-1 .77 normal Not Available [facility] ([facility]) [address] [facility], [place], [address], 03/15/2025 19:09:28 03/14/20 25 03/15/2025 THYRO ID ANTIB ODIES thyroid peroxidase (tpo) Ab 11 IU/mL 0-34 normal Not Available [facility] ([facility]) [address] [place], [address], 03/15/2025 19:09:29 03/14/20 25 03/15/2025 THYRO ID ANTIB ODIES thyroglobuli n antibody <1.0 IU/mL 0.0-0. 9 Thyro globu richard Antib mary measu red by Jennifer Scruggst er Metho dolog y It shoul d be noted that the prese nce of thyro globu richard antib odies may not be patho genic nor diagn ostic , espec ially at very low level s. The assay suhail herrera er has found that four perce nt of indiv idual s witho ut evide nce of thyro id disea se or autoi mmuni ty will have posit sindy TgAb level s up to 4 IU/mL . Not Available [facility] ([facility]) [address] [place], [address], 03/15/2025 19:09:29 03/14/2003/15/2025 TRIIO DOTHY TRACY E (T3), FREE triiodothyro nine (T3), free 3.8 pg/mL 2.0-4. 4 normal Not Available [facility] ([facility]) [address] [place], [address], 03/15/2025 19:09:30 07/29/20 25 07/30/2025 TSH+F REE T4 TSH 0.561 uIU/m L 0.450- 4.500 normal Not Available [facility] ([facility]) [address] [place], [address], 07/30/2025 13:11:37 07/29/20 25 07/30/2025 TSH+F REE T4 T4,free(dire ct) 1.32 NG/dL 0.82-1 .77 normal Not Available [facility] ([facility]) [address] [place], [address], 07/30/2025 13:11:37 07/29/2007/30/2025 CBC WITH DIFFE RENTI AL/PL ATELE T WBC 5.9 x10e3 /uL 3.4-10 .8 normal Not Available [facility] ([facility]) [address] [facility], [place], [address], 07/30/2025 13:11:38 07/29/2007/30/2025 CBC WITH DIFFE RENTI AL/PL ATELE T RBC 5.18 x10e6 /uL 4.14-5 .80 normal Not Available [facility] ([facility]) [address] [place], [address], 07/30/2025 13:11:38 07/29/2007/30/2025 CBC WITH DIFFE RENTI AL/PL ATELE T hemoglobin 15.3 g/dL 13.0-1 7.7 normal Not Available [facility] ([facility]) [address] [place], [address], 07/30/2025 13:11:38 07/29/2007/30/2025 CBC WITH DIFFE RENTI AL/PL ATELE T hematocrit 47.5 % 37.5-5 1.0 normal Not Available [facility] ([facility]) [address] [place], [address], 07/30/2025 13:11:38 07/29/2007/30/2025 CBC WITH DIFFE RENTI AL/PL ATELE T MCV 92 fL 79-97 normal Not Available [facility] ([facility]) [address] [place], [address], 07/30/2025 13:11:38 07/29/2007/30/2025 CBC WITH DIFFE RENTI AL/PL ATELE T MCH 29.5 pg 26.6-3 3.0 normal Not Available [facility] ([facility]) [address] [place], [address], 07/30/2025 13:11:38 07/29/2007/30/2025 CBC WITH DIFFE RENTI AL/PL ATELE T MCHC 32.2 g/dL 31.5-3 5.7 normal Not Available [facility] ([facility]) [address] [facility], [place], [address], 07/30/2025 13:11:38 07/29/2007/30/2025 CBC WITH DIFFE RENTI AL/PL ATELE T RDW 12.5 % 11.6-1 5.4 Not Available [facility] ([facility]) [address] [facility], [place], [address], 07/30/2025 13:11:38 07/29/2007/30/2025 CBC WITH DIFFE RENTI AL/PL ATELE T platelets 247 x10e3 /uL 150-45 0 normal Not Available [facility] ([facility]) [address] [facility], [place], [address], 07/30/2025 13:11:38 07/29/2007/30/2025 CBC WITH DIFFE RENTI AL/PL ATELE T neutrophils 60 % not estab. normal Not Available [facility] ([facility]) [address] [facility], [place], [address], 07/30/2025 13:11:38 07/29/2007/30/2025 CBC WITH DIFFE RENTI AL/PL ATELE T lymphs 25 % not estab. normal Not Available [facility] ([facility]) [address] [facility], [place], [address], 07/30/2025 13:11:38 07/29/2007/30/2025 CBC WITH DIFFE RENTI AL/PL ATELE T monocytes 12 % not estab. normal Not Available [facility] ([facility]) [address] [place], [address], 07/30/2025 13:11:38 07/29/20 25 07/30/2025 CBC WITH DIFFE RENTI AL/PL ATELE T eos 2 % not estab. normal Not Available [facility] ([facility]) [address] [facility], [place], [address], 07/30/2025 13:11:38 07/29/2007/30/2025 CBC WITH DIFFE RENTI AL/PL ATELE T basos 1 % not estab. 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 0 normal Not Available [facility] ([facility]) [address] [place], [address], 07/30/2025 13:11:38 07/29/20 25 07/30/2025 CBC WITH DIFFE RENTI AL/PL ATELE T lymphs (absolute) 1.5 x10e3 /uL 0.7-3. 1 normal Not Available [facility] ([facility]) [address] [place], [address], 07/30/2025 13:11:38 07/29/2007/30/2025 CBC WITH DIFFE RENTI AL/PL ATELE T monocytes(ab solute) 0.7 x10e3 /uL 0.1-0. 9 normal Not Available [facility] ([facility]) [address] [place], [address], 07/30/2025 13:11:38 07/29/20 25 07/30/2025 CBC WITH DIFFE RENTI AL/PL ATELE T eos (absolute) 0.1 x10e3 /uL 0.0-0. 4 normal Not Available [facility] ([facility]) [address] [facility], [place], [address], 07/30/2025 13:11:38 07/29/2007/30/2025 CBC WITH DIFFE RENTI AL/PL ATELE T baso (absolute) 0.0 x10e3 /uL 0.0-0. 2 normal Not Available [facility] ([facility]) [address] [facility], [place], [address], 07/30/2025 13:11:38 07/29/2007/30/2025 CBC WITH DIFFE RENTI AL/PL ATELE T immature granulocytes 0 % not estab. Not Available [facility] ([facility]) [address] [facility], [place], [address], 07/30/2025 13:11:38 07/29/2007/30/2025 CBC WITH DIFFE RENTI AL/PL ATELE T immature grans (abs) 0.0 x10e3 /uL 0.0-0. 1 Not Available [facility] ([facility]) [address] [facility], [place], [address], 07/30/2025 13:11:38 07/29/2007/30/2025 CBC WITH DIFFE RENTI AL/PL ATELE T NRBC MANGLE OPERATOR GARMENTS Not Available [facility] ([facility]) [address] [facility], [place], [address], 07/30/2025 13:11:38 07/29/2007/30/2025 CBC WITH DIFFE RENTI AL/PL ATELE T hematology comments: MANGLE OPERATOR GARMENTS Not Available [facility] ([facility]) [address] [facility], [place], [address], 07/30/2025 13:11:38 07/29/20 25 07/30/2025 MAGNE SIUM magnesium 2.0 mg/dL 1.6-2. 3 normal Not Available [facility] ([facility]) [address] [facility], [place], [address], 07/30/2025 13:11:39 01/18/20 25 01/17/2025 elect rocar diogr am No observ ation record ed. IVAN [address], [address], 01/17/2025 14:39:46 01/18/20 25 01/17/2025 elect rocar diogr am No observ ation record ed. IAVN [address], [address], 01/17/2025 14:20:06 04/01/20 25 03/29/2025 US, thyro id [facility] [address] [place] [address] Phone: Fax: Name: CARLOS ARIZMENDI Exam Date: 025 : 995 Age 29 years Gender : M Access ion: [id number] Physic greg: GARCÍA QUIÑONES Facili ty: [facility] HSV: Outpat ient Exam: US THYROI D INDICA TION: NONTOX IC GOITER EXAMIN ATION: Ultras ound US THYROI D TECHNI QUE: Austin scale and color dopple r imagin g was perfor med of the thyroi d gland. COMPAR JANETTE: None. __ FINDIN GS: RIGHT THYROI D LOBE: Measur es 6.2 x 1.8 x 2.7 cm. Homoge neous echote xture with normal vascul arity. i??No thyroi d nodule s are presen t. LEFT THYROI D LOBE: Measur es 5.2 x 1.4 x 2.2 cm. Homoge neous echote xture with normal vascul arity. i??No thyroi d nodule s are presen t. ISTHMU S: Measur es 0.7 cm. No thyroi d nodule s are presen t. IMPRES ALEKSANDRA: Unrema rkable thyroi d ultras ound. Electr onical ly signed by: Ashley Lim MD 2024 11:56 AM EDT RP Workst ation: [id number] Dictat ed By: ASHLEY LIM Transc ribed By: Transc ribed On: 025 11:55 AM Electr onical ly signed by: ASHLEY LIM 025 Thank you for referr CARLOS Marte to [facility] al. Legall y authen ticate d by CARINA Jacobs 2024-0 04-01 11:55: 26 CC'ed Logic: Orderi ng Provid er: NURIA WINTER CC Provid er: NURIA WINTER Attend ing Provid er: NURIA WINTER Referr ing Provid er: NURIA WINTER Admitt ing Provid er: NURIA WINTER [address] ([facility]) [address] [place] [address], [place], [address], 04/01/2025 13:24:27 07/29/2007/29/2025 elect rocar diogr am No observ ation record ed. [facility] [address] [place], [address], 07/29/2025 14:19:18 07/30/2007/29/2025 elect rocar diogr am No observ ation record ed. [facility] [address] [place], [address], 07/30/2025 13:20:49 Result Notes None recorded. Problems Name Problem SNOMED Code Status Onset Date Resolution Date Notes Provider Name and Address Organization Details Recorded Time Acute dermatitis 25724406 Active 2023 Sarahi Quiñones PA-C [facility], [place], [address], [place] [facility] [place] 4 10:38:49 Acute upper respiratory infection 95326717 Active 2023 Sarahi Quiñones PA-C [facility], [address], [place] 4 10:38:58 Near syncope 927738844 Active 2024 Sarahi Quiñones PA-C [facility] [place], [address], [place] [facility] [place] 5 13:50:14 Generalized anxiety disorder 85566052 Active 2024 Sarahi Quiñones PA-C [facility], [place], [address], [place] [facility] [place] 5 09:02:25 Thyroid function tests abnormal 829274702 Active 2024 Sarahi Quiñones PA-C [facility], [place], [address], [place] [facility] [place] 5 09:12:50 Mixed hyperlipidemia 738874109 Active 2024 Sarahi Quiñones PA-C [facility], [place], [address], [place] [facility] [place] & [place] 5 09:13:04 Goiter 5020450 Active 2024 Sarahi Quiñones PA-C [facility], [place], [address], [place] [facility] [place] & [place] 5 09:19:52 Thyroid hormone tests outside reference range 792166938 Active 2024 Sarahi Quiñones PA-C [facility], [place], [address], [facility] - [facility] [place] [facility] & [place] 5 16:05:39 Chest pain 45798150 Active 2024 Sarahi Quiñones PA-C [address] [facility] [address], [place], [address], [place] - [facility] [place] [facility] & [place] 5 10:10:04 Problem Notes None recorded. Medical Equipment None Reported. Allergies No known drug allergies Medications Name Sig Start Date Stop Date Status Note LastModified by Organization Details LastModified Time cyclobenzap rine 10 mg tablet TAKE 1 TABLET EVERY 8 HOURS NEEDED FOR MUSCLE SPASMS 07/29 completed Not Available Not Available Not Available citalopram 10 mg tablet TAKE 1 TABLET 1 TIME EACH DAY 05/09 completed Not Available Not Available Not Available hydrocodone 5 mg-acetamin ophen 325 mg tablet TAKE 1 TABLET EVERY 6 HOURS NEEDED FOR PAIN. MAXIMUM DAILY AMOUNT OF 4 TABLETS 07/29 completed Not Available Not Available Not Available citalopram 20 mg tablet Take 1 tablet every day by oral route for 30 days. 07/29 completed Not Available Not Available Not Available cephalexin 500 mg capsule TAKE 1 CAPSULE 2 TIMES EACH DAY FOR 10 DAYS 01/17 completed Not Available Not Available Not Available methylpredn isolone 4 mg tablets in a dose pack TAKE ACCORDING TO PACKAGE INSTRUCTI ONS 01/17 completed Not Available Not Available Not Available naproxen 500 mg tablet TAKE 1 TABLET 2 TIMES EACH DAY, WITH BREAKFAST AND DINNER 07/29 completed Not Available Not Available Not Available amoxicillin 875 mg-potassiu m clavulanate 125 mg tablet TAKE 1 TABLET BY MOUTH EVERY 12 HOURS FOR 10 DAYS 07/30 completed Not Available Not Available Not Available Vitals Date Recorded Body height Body mass index (BMI) Body weight Body temperature Oxygen saturation Oxygen saturation in Arterial blood by Pulse oximetry Heart rate Systolic And Diastolic Provider Name and Address Organization Details Last Updated DateTime 5 182.88 cm 26.3 kg/m2 29150.9 2 g 97.3 [degF] 99 % 99 % 64 /min 120/70 mm[Hg] Nadia JAMES [facility] [place] [facility] & [place] 5 11:01:34 Date Recorded Body height Body mass index (BMI) Body weight Oxygen saturation Oxygen saturation in Arterial blood by Pulse oximetry Heart rate Systolic And Diastolic Provider Name and Address Organization Details Last Updated DateTime 5 182.88 cm 26.3 kg/m2 40875.9 2 g 98 % 98 % 73 /min 120/80 mm[Hg] Nadia JAMES [facility] [place] [facility] & [place] 5 08:48:19 Date Recorded Body height Body mass index (BMI) Body weight Oxygen saturation Oxygen saturation in Arterial blood by Pulse oximetry Heart rate Systolic And Diastolic Provider Name and Address Organization Details Last Updated DateTime 5 182.88 cm 26.3 kg/m2 90495.9 2 g 98 % 98 % 64 /min 120/80 mm[Hg] Nadia JAMES [facility] [place] [facility] & [place] 5 08:31:57 Date Recorded Body height Body mass index (BMI) Body weight Oxygen saturation Oxygen saturation in Arterial blood by Pulse oximetry Heart rate Systolic And Diastolic Provider Name and Address Organization Details Last Updated DateTime 5 182.88 cm 26.3 kg/m2 62942.9 2 g 98 % 98 % 80 /min 124/80 mm[Hg] Nadia JAMES [facility] & [place] 5 15:44:39 Date Recorded Body height Body mass index (BMI) Body weight Oxygen saturation Oxygen saturation in Arterial blood by Pulse oximetry Heart rate Systolic And Diastolic Provider Name and Address Organization Details Last Updated DateTime 5 182.88 cm 26.3 kg/m2 60392.9 2 g 99 % 99 % 76 /min 150/80 mm[Hg] Nadia JAMES [facility] [place] [facility] & [place] 5 09:37:26 Social History Question Answer Notes LastModified by Organizat ion Details LastModified Time Tobacco Smoking Status Current Every Day Smoker Nadia gaitan, YARIEL JAMES [facility] & [place] 07/30/2024 10:09:40 Do You Have An Advance Directive? No [email or web address] Information not available 07/30/2024 Are You Blind Or Do You Have Difficulty Seeing? No [email or web address] Information not available 07/30/2024 What Was The Date Of Your Most Recent Tobacco Screening? 07/30/2024 [email or web address] Information not available 07/30/2024 Are You Passively Exposed To Smoke? Yes [email or web address] Information not available 07/30/2024 How Much Tobacco Do You Smoke? 0.5 PPD [email or web address] Information not available 07/30/2024 Sex: Unknown Functional Status Question Answer Note LastModified by Organizat ion Details LastModified Time Do you use any illicit or recreational drugs? No [email or web address] Information not available 07/30/2024 What is your level of alcohol consumption? 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 Occasional [email or web address] Information not available 07/30/2024 Mental Status Question Answer Note LastModified by Organization D etails LastModified Time Do you feel stressed (tense, restless, nervous, or anxious, or unable to sleep at night)? [id number] [email or web address] Information not available 07/30/2024 Family History Relationship Description Onset Age of this Age Resolved Age Notes LastModified by Organization Details LastModified Time Mother Heart disease Not available 2023 10:14:17 Medical History Condition Response Acne Y Past Encounters Encounter ID Performer Location Encounter Start Date Encounter Closed Date Diagnosis/Indication Diagnosis SNOMED-CT Code Diagnosis ICD10 Code Diagnosis IMO Codes Diagnosis Note [id number] MD TERRA Anaya [address] [address] 07/30/2024 09:58:37 07/30/2024 10:51:13 Acute dermatitis 09626958 L30.9 Acute uppe r respiratory infection 12867257 J06.9 [id number] MD TERRA Anaya [address] [address] 01/17/2025 10:46:16 01/17/2025 11:44:28 Near syncope 337028407 R55 [id number] MD [facility] [address] [place], [place] [address] [address] 02/12/2025 08:37:14 02/12/2025 09:19:32 Near syncope 576834880 R55 731134 Generalize d anxiety disorder 29619828 F41.1 059189 Harmful pa ttern of use of nicotine 265738159 Z72.0 [id number] Geoffrey Kothari MD [facility] [address] [place] [address] [place] [address] 03/14/2025 08:19:42 03/14/2025 09:25:05 Generalized anxiety disorder 39848595 F41.1 568832 Thyroid fu nction tests abnormal 596774206 R79.89 537727 Mixed hyperlipidemia 267 526181 E78.2 34178 Goiter 7695507 E04.9 [id number] Geoffrey Kothari MD [address] [place] [address] 05/09/2025 15:35:02 05/09/2025 16:06:37 Thyroid hormone tests outside reference range 132055526 R79.89 [id number] Geoffrey Kothari MD [address] [place] [address] 07/29/2025 09:25:27 07/29/2025 10:35:53 Near syncope 978566543 R55 675950 Chest pain 04716320 R07. 9 10259700 Health Concerns Section Related Observation LastModified by Organization Detai ls LastModified Time None Recorded Concern Status LastModified by Organization Details LastModified Time None Recorded Advance Directives Directive N: Payers Insurance Date Sequence Insurance Name Policy Number Policy Rivera Covered Member ID Rivera Member ID Guarantor Name 07/25/2025 1 [employer] [facility] (MEDICAID HMO) Carlos Arizmendi [id number] Geraldine Arizmendi 04/02/2025 1 [employer] [facility] (MEDICAID HMO) Carlos Arizmendi [id number] Geraldine Arizmendi Notes Date Note Type Note Provider Name and Address Organization Details Recorded Time 01/17/2025 text/html Carlos is a 29 yo Male who presents to the clinic today for evaluation. Patient has a history of dizzy episodes and near-syncope. Patient has been having these issues for the last couple months he actually went to the ER a couple weeks ago for symptoms of this. Patient had a complete workup with chest x-ray EKG at the ER and they stated that everything was normal. Patient states he continues to get these episodes they do not seem to occur at a certain time of the day. Patient states that he just gets episodes of dizziness lightheadedness and feels like he is going to pass out. He does feel like his heart slows down during these episodes. Patient declines any other issues or new complaints. Sarahi Quiñones PA-C [facility] [employer], [place], [address], [facility] & [place] 01/17/2025 14:59:56 02/12/2025 text/html Carlos is a 29 yo Male who presents to the clinic today for evaluation. Patient has episodes of near-syncope. Patient has been to Cardiology they have done workup they felt that his symptoms were anxiety related and started him on Celexa. Patient is scheduled to follow-up with security services manager in 2 months. Patient declines any other issues or new complaints. Patient does currently vape he is interested in quitting that. Patients lab work from his last visit did not result and needs to be redrawn today as well. Patient declines any other issues. Patient has only been on the Celexa now for 3 days. Sarahi Quiñones PA-C [address], [place], [address], [facility] & [place] 02/12/2025 11:08:14 03/14/2025 text/html Carlos is a 29 yo male here for anxiety and lab follow up. He has been on citalopram 10mg for about a month. He reports it had been helping for a few weeks but now he feels like his anxiety is back at baseline. He states his anxiety is worse at bedtime. He reports 8 hours of sleep a night.He had labs drawn at last visit and would like to discuss them today. He has no physical complaints today. Sarahi Quiñones PA-C [address] [facility],[address], [place], [address], [place] [facility] [place] & [place] 03/14/2025 14:29:56 05/09/2025 text/html Carlos is a 30 yo male who presents to the clinic today for evaluation. Patient is here today for evaluation. He has a history of abnormal thyroid lab testing. He is here to review test results and also his thyroid ultrasound. Patient declines any other issues or new complaints. Lot of the symptoms that he was previously having has improved since his job has changed. Patient declines any other issues or new complaints. Sarahi Quiñones PA-C [address] [facility],[address], [place], [address], [place] [facility] [facility] & [place] 05/10/2025 08:13:54 07/29/2025 text/html Carlos is a 30 yo Male who presents to the clinic today for evaluation. Patient has a history almost passing out. Patient has been having issues with chest pain. Patient denies any current symptoms. Patient denies any other issues or new complaints. Sarahi Quiñones PA-C [address] [facility] [employer] [facility],[address], [place], [address], [place] [facility] & [place] 07/29/2025 10:38:40
--- OUTSIDE RECORDS SUMMARY | 2025-07-31 15:33 | XMS_ITS | Continuity of Care Document ---
Author Organization [facility] Address [address] [place] [id number] Care Team Providers Care National Coverage Specialist Name Role Phone SARAHI QUIÑONES Primary Care Provider Assessment No assessment recorded. Plan of Treatment Reminders Order Date Submit Date Provider Last Modified By Organization Details Last Modified Time Details Appointments Establish ed Visit 15 min 2025 04:00P M Sarahi Quiñones PA-C Not available Not available Not available Lab CBC w/ auto diff 2024 [facility], [address] [place] [address], [id number], 07/30/2025 13:11:38 magnesium , serum or plasma 2024 [facility], [address] [place] [address], [id number], 07/30/2025 13:11:39 TSH + free T4, serum 2024 [facility], [address] [place] [address], [id number], 07/30/2025 13:11:37 Referral cardiolog ist referral 2024 MATT Burgess MD, [address], [place] [address], [place], [address], 07/29/2025 11:40:28 Procedures None recorded. Surgeries None recorded. Imaging electroca rdiogram 2024 025 [email or web address] [facility], [address] [place] [address], [address], 07/29/2025 10:23:19 Medication Orders None recorded. Patient TargetsNo targets recorded. Patient Instructions Encounter Date Encounter Id Patient Instructions Last Modified By Organization Details Last Modified Time 07/29/[id number] Plan: 1. EKG obtained today which showed normal sinus rhythm no ST segment elevation or depression with ventricular rate of 70 beats per minute. 2. Referral to Cardiology started today. 3. Labs drawn today for evaluation. 4. Will follow-up with him in October as scheduled. Patient was advised to return to the clinic sooner if needed. 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) [address] [place], [address], 07/30/2025 13:11:37 07/29/2007/30/2025 TSH+F REE T4 T4,free(dire ct) 1.32 NG/dL 0.82-1 .77 normal Not Available [facility] ([facility]) [address] [place], [address], 07/30/2025 13:11:37 07/29/2007/30/2025 CBC WITH DIFFE RENTI AL/PL ATELE T WBC 5.9 x10e3 /uL 3.4-10 .8 normal Not Available [facility] ([facility]) [address] [place], [address], 07/30/2025 13:11:38 07/29/20 25 07/30/2025 CBC WITH DIFFE RENTI AL/PL ATELE T RBC 5.18 x10e6 /uL 4.14-5 .80 normal Not Available [facility] ([facility]) [address] [facility], [place], [address], 07/30/2025 13:11:38 07/29/2007/30/2025 CBC WITH DIFFE RENTI AL/PL ATELE T hemoglobin 15.3 g/dL 13.0-1 7.7 normal Not Available [facility] ([facility]) [address] [facility], [place], [address], 07/30/2025 13:11:38 07/29/2007/30/2025 CBC WITH DIFFE RENTI AL/PL ATELE T hematocrit 47.5 % 37.5-5 1.0 normal Not Available [facility] ([facility]) [address] [facility], [place], [address], 07/30/2025 13:11:38 07/29/2007/30/2025 CBC WITH DIFFE RENTI AL/PL ATELE T MCV 92 fL 79-97 normal Not Available [facility] ([facility]) [address] [place], [address], 07/30/2025 13:11:38 07/29/2007/30/2025 CBC WITH DIFFE RENTI AL/PL ATELE T MCH 29.5 pg 26.6-3 3.0 normal Not Available [facility] ([facility]) [address] [place], [address], 07/30/2025 13:11:38 07/29/2007/30/2025 CBC WITH DIFFE RENTI AL/PL ATELE T MCHC 32.2 g/dL 31.5-3 5.7 normal Not Available [facility] ([facility]) [address] [facility], [place], [address], 07/30/2025 13:11:38 07/29/20 25 07/30/2025 CBC WITH DIFFE RENTI AL/PL ATELE T RDW 12.5 % 11.6-1 5.4 Not Available [facility] ([facility]) [address] [facility], [place], [address], 07/30/2025 13:11:38 07/29/2007/30/2025 CBC WITH DIFFE RENTI AL/PL ATELE T platelets 247 x10e3 /uL 150-45 0 normal Not Available [facility] ([facility]) [address] [facility], [place], [address], 07/30/2025 13:11:38 07/29/2007/30/2025 CBC WITH DIFFE RENTI AL/PL ATELE T neutrophils 60 % not estab. normal Not Available [facility] ([facility]) [address] [facility], [place], [address], 07/30/2025 13:11:38 07/29/2007/30/2025 CBC WITH DIFFE RENTI AL/PL ATELE T lymphs 25 % not estab. normal Not Available [facility] ([facility]) [address] [facility], [place], [address], 07/30/2025 13:11:38 07/29/2007/30/2025 CBC WITH DIFFE RENTI AL/PL ATELE T monocytes 12 % not estab. normal Not Available [facility] ([facility]) [address] [facility], [place], [address], 07/30/2025 13:11:38 07/29/2007/30/2025 CBC WITH DIFFE RENTI AL/PL ATELE T eos 2 % not estab. normal Not Available [facility] ([facility]) [address] [facility], [place], [address], 07/30/2025 13:11:38 07/29/20 25 07/30/2025 CBC WITH DIFFE RENTI AL/PL ATELE T basos 1 % not estab. normal Not Available [facility] ([facility]) [address] [facility], [place], [address], 07/30/2025 13:11:38 07/29/2007/30/2025 CBC WITH DIFFE RENTI AL/PL ATELE T immature cells DEFENSE ATTORNEY Not Available [facility] ([facility]) [address] [facility], [place], [address], 07/30/2025 13:11:38 07/29/2007/30/2025 CBC WITH DIFFE RENTI AL/PL ATELE T neutrophils (absolute) 3.6 x10e3 /uL 1.4-7. 0 normal Not Available [facility] ([facility]) [address] [place], [address], 07/30/2025 13:11:38 07/29/20 25 07/30/2025 CBC WITH DIFFE RENTI AL/PL ATELE T lymphs (absolute) 1.5 x10e3 /uL 0.7-3. 1 normal Not Available [facility] ([facility]) [address] [place], [address], 07/30/2025 13:11:38 07/29/20 25 07/30/2025 CBC WITH DIFFE RENTI AL/PL ATELE T monocytes(ab solute) 0.7 x10e3 /uL 0.1-0. 9 normal Not Available [facility] ([facility]) [address] [place], [address], 07/30/2025 13:11:38 07/29/20 25 07/30/2025 CBC WITH DIFFE RENTI AL/PL ATELE T eos (absolute) 0.1 x10e3 /uL 0.0-0. 4 normal Not Available [facility] ([facility]) [address] [place], [address], 07/30/2025 13:11:38 07/29/20 25 07/30/2025 CBC WITH DIFFE RENTI AL/PL ATELE T baso (absolute) 0.0 x10e3 /uL 0.0-0. 2 normal Not Available [facility] ([facility]) [address] [facility], [place], [address], 07/30/2025 13:11:38 07/29/2007/30/2025 CBC WITH DIFFE RENTI AL/PL ATELE T immature granulocytes 0 % not estab. Not Available [facility] ([facility]) [address] [facility], [place], [address], 07/30/2025 13:11:38 07/29/2007/30/2025 CBC WITH DIFFE RENTI AL/PL ATELE T immature grans (abs) 0.0 x10e3 /uL 0.0-0. 1 Not Available [facility] ([facility]) [address] [facility], [place], [address], 07/30/2025 13:11:38 07/29/2007/30/2025 CBC WITH DIFFE RENTI AL/PL ATELE T NRBC DEFENSE ATTORNEY Not Available [facility] ([facility]) [address] [facility], [place], [address], 07/30/2025 13:11:38 07/29/2007/30/2025 CBC WITH DIFFE RENTI AL/PL ATELE T hematology comments: DEFENSE ATTORNEY Not Available [facility] ([facility]) [address] [facility], [place], [address], 07/30/2025 13:11:38 07/29/2007/30/2025 MAGNE SIUM magnesium 2.0 mg/dL 1.6-2. 3 normal Not Available [facility] ([facility]) [address] [facility], [place], [address], 07/30/2025 13:11:39 07/29/2007/29/2025 elect rocar diogr am No observ ation record ed. IVAN Alvarado [address], [address], 07/29/2025 14:19:18 07/30/20 25 07/29/2025 elect carol mcdonnell am No observ ation record ed. IVAN Alvarado [address], [address], 07/30/2025 13:20:49 Result Notes None recorded. Problems Name Problem SNOMED Code Status Onset Date Resolution Date Notes Provider Name and Address Organization Details Recorded Time Acute dermatitis 58575991 Active 2023 Sarahi Quiñones PA-C [employer], [place], [address], [place] & [place] 4 10:38:49 Acute upper respiratory infection 02290186 Active 2023 Sarahi Quiñones PA-C [employer], [place], [address], [place] & [place] 4 10:38:58 Near syncope 804393450 Active 2024 Sarahi Quiñones PA-C [employer], [place], [address], [place] & [place] 5 13:50:14 Generalized anxiety disorder 36984390 Active 2024 Sarahi Quiñones PA-C [employer], [place], [address], [place] & [place] 5 09:02:25 Thyroid function tests abnormal 839392777 Active 2024 Sarahi Quiñones PA-C [employer], [place], [address], [place] & [place] 5 09:12:50 Mixed hyperlipidemia 089048776 Active 2024 Sarahi Quiñones PA-C [employer], [place], [address], [place] & [place] 5 09:13:04 Goiter 6657483 Active 2024 Sarahi Quiñones PA-C [address] [place] [address],[address], [address], [facility] & [place] 5 09:19:52 Thyroid hormone tests outside reference range 436492530 Active 2024 Sarahi Quiñones PA-C [address] [place] [address],[address], [address], [facility] & [place] 5 16:05:39 Chest pain 32214218 Active 2024 Sarahi Quiñones PA-C [address] [place] [address],[address], [address], [facility] & [place] 5 10:10:04 Problem Notes None recorded. Medical [...] and Address Organization Details Last Updated DateTime 182.88 cm 26.3 kg/m2 90196.9 2 g 99 % 99 % 76 /min 150/80 mm[Hg] Nadia SALDIVAR [facility] & [place] 09:37:26 Social History Question Answer Notes LastModified by [employer] Details LastModified Time Tobacco Smoking Status Current Every Day Smoker Nadia [facility], [facility] & [place] 07/30/2024 10:09:40 Do You Have An Advance Directive? No [email or web address] Information not available 07/30/2024 Are You Blind Or Do You Have Difficulty Seeing? No [email or web address] Information not available 07/30/2024 What Was The Date Of Your Most Recent Tobacco Screening? 07/30/2024 [email or web address] Information not available 07/30/2024 Are You Passively Exposed To Smoke? Yes [email or web address] Information not available 07/30/2024 How Much Tobacco Do You Smoke? 0.5 PPD [email or web address] Information not available 07/30/2024 Sex: Unknown Functional Status Question Answer Note LastModified by [employer] Details LastModified Time Do you use any illicit or recreational drugs? No [email or web address] Information not available 07/30/2024 What is your level of alcohol consumption? 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 Occasional [email or web address] Information not available 07/30/2024 Mental Status Question Answer Note LastModified by Organization D etails LastModified Time Do you feel stressed (tense, restless, nervous, or anxious, or unable to sleep at night)? [id number] [email or web address] Information not available 07/30/2024 Family History Relationship Description Onset Age of this Age Resolved Age Notes LastModified by Organization Details LastModified Time Mother Heart disease Not available 2023 10:14:17 Medical History Condition Response Acne Y Past Encounters Encounter ID Performer Location Encounter Start Date Encounter Closed Date Diagnosis/Indication Diagnosis SNOMED-CT Code Diagnosis ICD10 Code Diagnosis IMO Codes Diagnosis Note [id number] Geoffrey Kothari MD [facility] [address] [facility] [place] [address] 07/29/2025 09:25:27 07/29/2025 10:35:53 Near syncope 702999911 R55 661448 Chest pain 82239471 R07. 9 84235304 Health Concerns Section Related Observation LastModified by Organization Detai ls LastModified Time None Recorded Concern Status LastModified by Organization Details LastModified Time None Recorded Payers Encounter Date Sequence Insurance Name Policy Number Policy Rivera Covered Member ID Rivera Member ID Guarantor Name 07/29/2025 1 [employer] [facility] (MEDICAID HMO) Carlos Logan Ugo [id number] M Carlos Arizmendi Notes Date Note Type Note Provider Name and Address Organization Details Recorded Time 07/29/2025 text/html Carlos is a 30 yo Male who presents to the clinic today for evaluation. Patient has a history almost passing out. Patient has been having issues with chest pain. Patient denies any current symptoms. Patient denies any other issues or new complaints. Saraih Quiñones PA-C [address] [facility],[address], [place], [address], [facility] & [place] 07/29/2025 10:38:40
--- NOTE | 2025-07-31 15:34 | PC.NURSE ---
Called [facility] per Dr Doe to speak with hand about this pt. Images were powershared and ywould call back when they had a provider
--- NOTE | 2025-07-31 15:42 | PC.NURSE ---
called back and is speaking with Dr Doe now.
[2025-07-31 15:49] LABS: COC Drug Screen In House Collection Only
[2025-07-31] MEDS: TET/DIPHTH/PERT-ADULT 0.5ML SYRINGE 0.5 ML IM (15:51)
[2025-07-31] MEDS: OXYCODONE 5MG IMMEDIATE RELEASE TABLET 5 MG PO (16:21)
[2025-07-31 16:34] VITALS: BP 148/78; PULSE 74; RESP 18; TEMP 36.6; O2SAT 98
== END 2025-07-31 16:34 | disposition short-term general hospital (02) ==
PROVIDERS: Emergency Provider Student in an Organized Health Care Education/Training Program; PCP Physician Assistant
DX: S61.012A Laceration without foreign body of left thumb without damage to nail, initial encounter (principal); W26.8XXA Contact with other sharp object(s), not elsewhere classified, initial encounter
CPT/HCPCS: 73130; 80305; 90471; 90715; 96365; 99285; J0690